=== PATIENT | female | born 1965 | race American Indian/Alaskan Native ===

== ENCOUNTER 2018-09-14 07:27 | Emergency (ER) | payer OTHER, MEDICARE | END 2018-09-14 08:06 | disposition home or self-care (01) | LOC: FTE 07:27 | DX: J32.9 Chronic sinusitis, unspecified (principal); E11.9 Type 2 diabetes mellitus without complications; F17.210 Nicotine dependence, cigarettes, uncomplicated; Z79.84 Long term (current) use of oral hypoglycemic drugs | CPT/HCPCS: 99283 ==